=== PATIENT | female | born 1975 | race Hispanic/Latino ===

== ENCOUNTER 2018-12-30 09:14 | Inpatient (IN) | payer OTHER ==
[2018-12-29 09:18] VITALS: BMI 48.6
--- NOTE | 2018-12-30 06:46 | HP ---
REASON FOR ADMISSION: Menorrhagia, 8 cm submucosal fibroid, anemia, and low-grade dysplasia of the cervix. SCHEDULED PROCEDURE: Total laparoscopic hysterectomy and bilateral salpingectomy with GelPOINT bag retrieval. HISTORY OF PRESENT ILLNESS: Ms. Cody is a 43-year-old prisoner at the [facility] [place]. She presents with a history of menorrhagia, dysmenorrhea, and low-grade dysplasia with a negative cervical biopsy and a benign EMB. She has had five previous spontaneous vaginal deliveries. She has an 8 cm submucosal fibroid with menorrhagia and desires definitive surgical management. 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 The patient has heavy menses with microcytic anemia, changing pads every 30 minutes with severe dysmenorrhea. PAST MEDICAL HISTORY: None. SURGICAL HISTORY: Denies. ALLERGIES: DENIES. MEDICATIONS: Iron. SOCIAL HISTORY: Former tobacco user. Denies IV drug or alcohol abuse. FAMILY HISTORY: Noncontributory. REVIEW OF SYSTEMS: Noncontributory. PHYSICAL EXAMINATION: GENERAL: female, 5 feet 6 inches, 310, BMI 48. VITAL SIGNS: Blood pressure 122/74, pulse 68, and respirations 18. HEENT: Within normal limits. LUNGS: Clear to auscultation bilaterally. HEART: Regular rate and rhythm. BREASTS: No masses bilaterally. ABDOMEN: Soft, nontender without rebound or guarding. : Vulva without lesions. Vagina without discharge. Cervix, parous. Uterus anteverted for 12 to 14-week size. Adnexa, no masses bilaterally. EXTREMITIES: Without clubbing, cyanosis, or edema. LABORATORY DATA: Endometrial biopsy was benign. Pap smear was negative with a history of low-grade KAYLA in the past. Ultrasound reveals uterus measuring 13 x 10 x 10 cm with 715 mL volume and a large fibroid filling the entire uterus measuring 9 cm in greatest diameter. No adnexal masses or free fluid could be noted. IMPRESSION: Large intracavitary fibroid, symptomatic with menorrhagia and anemia. PLAN: Total laparoscopic hysterectomy with bilateral salpingectomy and GelPOINT bag retrieval. The patient understands risks and benefits of procedure. We will administer appropriate antibiotic and DVT prophylaxis. Job ID: [id number]
[2018-12-30] MEDS ORDERED: Gabapentin 300 MG CAP ONE (10:31)
[2018-12-30] MEDS ORDERED: CeleCOXIB 100 MG CAP ONE (10:32)
[2018-12-30] MEDS ORDERED: Famotidine/PF 20 mg/2ml Vial ONE (10:33)
[2018-12-30 10:54] LABS: BHCG - Serum Negative (NEGATIVE); Pregs Control Background? CLEAR/WHITE (CLR/WHITE); Pregs Control Bar Appear? YES (CONTROL BAR)
[2018-12-30] MEDS ORDERED: Bupivacaine/Epinephrine 0.25% 30 ML VIAL ONE (11:55)
[2018-12-30] MEDS ORDERED: Midazolam HCl 2 mg/2 ml Vial ONE (11:59)
[2018-12-30] MEDS ORDERED: Fentanyl 100 MCG/2 ML VIAL ONE ×3 (11:59→15:50)
[2018-12-30] MEDS ORDERED: Zolpidem Tartrate 5 MG TAB PO PRN (14:55)
[2018-12-30] MEDS ORDERED: Promethazine HCl 25 MG/ML VIAL IM PRN ×2 (14:55→15:03)
[2018-12-30] MEDS ORDERED: Simethicone Chewable 80 MG TAB PO PRN (14:55)
[2018-12-30] MEDS ORDERED: Morphine 2 MG/ML SYRINGE SLOW IVP PRN (14:55)
[2018-12-30] MEDS ORDERED: diphenhydrAMINE 25 MG CAP PO PRN (14:55)
[2018-12-30] MEDS ORDERED: Bisacodyl 10 MG SUPP PR PRN (14:55)
[2018-12-30] MEDS ORDERED: Ondansetron PF 4 MG/2 ML Vial IVP PRN (14:55)
[2018-12-30] MEDS ORDERED: traMADol HCl 50 MG TAB PO PRN (14:55)
[2018-12-30] MEDS ORDERED: Ketorolac Tromethamine 30 MG/ML VIAL IVP PRN (15:03)
[2018-12-30] MEDS ORDERED: HYDROmorphone 2 MG/ML VIAL SLOW IVP PRN (15:03)
[2018-12-30] MEDS ORDERED: Meperidine HCl/PF 25 MG/ML VIAL SLOW IVP PRN (15:03)
[2018-12-30] MEDS ORDERED: Promethazine HCl 25 MG/ML VIAL SLOW IVP PRN (15:03)
[2018-12-30] MEDS ORDERED: Ondansetron HCl/PF 4 MG/2 ML Vial IVP PRN (15:03)
--- NOTE | 2018-12-30 16:33 | OP ---
DATE OF PROCEDURE: 12/30/2018 PREOPERATIVE DIAGNOSIS: Large solitary leiomyomatous uterus with menorrhagia and dysmenorrhea. POSTOPERATIVE DIAGNOSIS: Large solitary leiomyomatous uterus with menorrhagia and dysmenorrhea. PROCEDURES PERFORMED: Total laparoscopic hysterectomy with extracorporeal morcellation, retrieval bag of approximately 750 g uterus with bilateral salpingectomy. SURGICAL RN: Hazel Nj PA-C ANESTHESIA: General endotracheal. ESTIMATED BLOOD LOSS: 200 mL. DRAINS: Rueda to gravity. MEDICATIONS: 2 g Ancef preincision. DVT PROPHYLAXIS: SCDs. OPERATIVE FINDINGS: 1. Approximately 14-week size uterus with solitary fundal leiomyoma extending into the right broad ligament. 2. Normal-appearing tubes and ovaries bilaterally. 3. Hemostasis, clear urine at the end of the procedure. 4. Bilateral ureters identified, noted to be well lateral to the surgical field. DISPOSITION: Recovery. DESCRIPTION OF PROCEDURE: After obtaining appropriate informed consent, the patient was taken to the operating room, where general endotracheal anesthesia was achieved without difficulty. The patient was prepped and draped in dorsal lithotomy in Juan stirrups. Weighted speculum was placed in the vagina. Cervix was identified, grasped with a single-tooth tenaculum. Uterus sounded to 14 cm. PHUC manipulator with 4 cm vaginal delineation device and a 10 cm obturator was placed without difficulty. Rueda catheter was placed, 100 mL of clear urine obtained. Hood Fitter removed the tenaculum and speculum out, changed his gloves, turned attention to the abdominal portion of the procedure. 10 mL of Marcaine was injected superior to the umbilicus. A 12 mm skin incision was made and Veress needle was placed inside the abdominal cavity, insufflation was carried out with carbon dioxide for a maximum pressure 15. 12 mm Rimma trocar was placed without difficulty. Confirmation of the entry into the peritoneal cavity without trauma to the underlying viscera was achieved. Findings as noted in the operative findings were noted. Right and left lateral da Inez ports were placed under direct visualization and an 11 mm curatorial assistant port in the right upper quadrant. Skin incision was extended to approximately 3 cm in length and cut down to the fascia was carried out for fascial incision of approximately 2.5 to 3 cm. A small Michael O was placed and the GelPort placed on it after placing a 14 cm specimen retrieval bag in the abdominal cavity in the usual manner. Da Inez robot was docked with monopolar scissors in the right hand and bipolar fenestrated forceps in the left. The fallopian tube was removed on the patient's left and then the utero-ovarian coagulated and transected through the broad and around. The uterus was manipulated over with a very large fibroid at the fundus. The cardinal ligament was identified and anterior and posterior peritoneum over it was incised, dissected off down the level of the uterosacral ligaments of the cervix and upper vagina. Skeletonization of the uterine vessels was carried out posteriorly. Ureter was identified, noted to be at least 2 cm lateral on that side. Anteriorly, the vesicouterine peritoneum was taken down sharply and dissected off the vagina and upper cervix. Skeletonization of the vessels on the left was carried out and these were coagulated and transected. There were noted to be quite large caliber secondary to the patient's fibroid. Attention was turned to the patient's right. Again, the fallopian tube was coagulated across the mesosalpinx and removed. On this side, the fibroid was much more prominent and really involved the entire broad ligament from the level of the pelvic brim down to the level of the internal cervical os. Fortunately, ureter was easily identified in the retroperitoneum. Anteriorly, the round ligament was coagulated and transected. The vesicouterine peritoneum incised from the level of the round down meeting the incision that were made from the left side. This was dissected off the lower uterine segment, cervix, and upper vagina. Uterine vessels were copious on the patient's right and caliber up to nearly 1 cm in diameter with many tortuousities and varicosities. The utero-ovarian ligament was identified, coagulated and transected and the broad incised anteriorly from that level to the level of the previous coagulation and transection of the round. Posteriorly, the uterus was pushed over to the patient's left, pushing the fibroid over as much as possible. The peritoneum was entered in a meticulous manner posteriorly and carried from the level of the broad ligament and the utero-ovarian down to the level of the cervix and upper vagina at the level of the uterosacral. Again, the ureter was identified and traced throughout its course. As the adventitial tissue and the broad ligament was taken down, the ureter maintained a more lateral course while the tortuous uterine vessels came over the top of it and entered into the uterus at the level of the internal cervical os. Uterine vessels were identified as individually as possible, coagulated and transected next to the cervix as closely as possible on the patient's right, getting down to the level of the uterosacral ligaments with the ureter again identified and noted to be well lateral on the right. Anteriorly, the vagina was entered. Difficulty with maintaining pneumoperitoneum was experienced at this time. It was found that the vaginal occlusion balloon on the PHUC had a leak. The PHUC was then therefore removed from the uterus and cervix and the rest of the specimen amputated occluding the vagina with a glove with a tight moist towel inside. Care was taken to not remove any more vagina than necessary and ensure complete removal of the cervix. The specimen was completely amputated and placed in the upper quadrant for retrieval. The bladder was backfilled and noted to be well away from the vaginal cuff. Good hemostasis was noted on the cuff and the cuff was closed using a running continuous 2-0 PDS, Stratafix from right to left and then back to right. The ureters were again identified bilaterally, noted to well lateral to the operative field. Suction irrigation was carried out. Good hemostasis was noted throughout. Tisseel was applied across all surgical pedicles. Good hemostasis was noted. The uterine specimen along with the 14 cm retrieval bag were pulled into the pelvis, stay sutures cut and the specimen placed inside the bag. The retrieval string on the bag then was pulled through the GelPOINT. The da Inez instruments were removed and the da Inez undocked, the patient flattened and the GelPOINT removed. The retrieval bag was pulled through the GelPOINT and rolled down. The specimen was morcellated in a serial manner extracorporeally using an 11 blade. The specimen was removed completely and great care was taken to avoid trauma to the underlying viscera. The small Michael O was removed. The fascia at the umbilicus was identified and closed using a running continuous 0 Vicryl suture. All trocars had been removed and the skin reapproximated x4 using 4-0 Monocryl and Dermabond. The glove was removed from the vagina. The vagina was noted to be dry without bleeding and intact cuff. The patient was taken to recovery room in good condition. Job ID: [id number]
[2018-12-30] MEDS: Sodium Chloride 0.9% 1,000 ML IV SCH (19:51)
[2018-12-30] MEDS: Ketorolac Tromethamine 30 MG/ML VIAL IVP SCH (19:51)
[2018-12-30] MEDS: Acetaminophen 1,000 MG in Premix Bag 1 BAG IVPB SCH (19:51)
[2018-12-30] MEDS: Ferrous Gluconate 324 MG TAB PO SCH (21:18)
[2018-12-31] MEDS: Acetaminophen 1,000 MG in Premix Bag 1 BAG IVPB SCH ×3 (02:07→11:28)
[2018-12-31] MEDS: Ketorolac Tromethamine 30 MG/ML VIAL IVP SCH (02:07)
[2018-12-31] MEDS: Sodium Chloride 0.9% 1,000 ML IV SCH ×2 (02:07→07:43)
[2018-12-31] MEDS ORDERED: Ibuprofen 800 MG TAB PO SCH (06:00)
[2018-12-31 07:03] LABS: Hemoglobin 10.9 g/dL (12.0-16.0); Mean Corpuscular HGB CONC 30.9 g/dL (32.0-36.0); Mean Corpuscular Hemoglobin 23.2 pg (27.0-31.0); Mean Platelet Volume 10.5 fL (7.4-10.4); Platelet Count 205 thou/uL (130-400); RBC Distribution Width 21.4 % (11.5-14.5); Red Blood Cell (RBC) Count 4.68 mill/uL (4.20-5.40); White Blood Cell (WBC) Count 10.9 thou/uL (4.8-10.8)
[2018-12-31] MEDS ORDERED: Cyanocobalamin 1000 MCG/ML VIAL IM SCH (09:00)
[2018-12-31] MEDS: Ferrous Gluconate 324 MG TAB PO SCH (09:17)
--- NOTE | 2018-12-31 10:36 | DIS ---
DATE OF ADMISSION: 12/30/2018 DATE OF DISCHARGE: 12/31/2018 PRIMARY HOSPITAL PROCEDURE: Total laparoscopic hysterectomy with bilateral salpingectomy; extracorporeal morcellation greater than 250 g. SUMMARY OF HOSPITAL COURSE: Ms. Cody is a 43-year-old female with large fibroid with approximately 700 g uterus. She underwent TLH, bilateral salpingectomy on the afternoon of 12/30/2018. She had extracorporeal morcellation carried out with an EBL of approximately 200 mL. Postoperative day #1, Rueda catheter was discontinued in the morning awaiting patient voiding at the time of this dictation. PHYSICAL EXAMINATION: VITAL SIGNS: Temperature is 98.6, pulse 62, respirations are 20, and blood pressure 117/56. Urine output was 700 mL overnight. Hematocrit was 35% on postoperative day #1 with normal platelet count. LUNGS: Clear to auscultation bilaterally. HEART: Regular rate and rhythm. ABDOMEN: Soft and nontender. Incisions are dry x4. Perineum is dry. EXTREMITIES: No clubbing, cyanosis, or edema. PLAN: The patient will be discharged home after 1200 hours on 12/31/2018 with discharge medications; tramadol 50 to 100 mg p.o. q.4 to 6 hours p.r.n. and Motrin 800 mg p.o. q.8 hours p.r.n. She is scheduled to follow up at [facility] and will be discharged to the [facility]. Job ID: [id number]
[2018-12-31 12:25] VITALS: BP 137/62; TEMP 97.6
[2018-12-31] MEDS ORDERED: FLU VACC QS2019-20(6MOS UP)/PF 60 MCG/0.5 ML SYRINGE IM ONE (21:00)
== END 2018-12-31 13:45 | DRG 742 ==
LOC: SURG A 10:04 → 3SE 17:24
PROVIDERS: ADMIT Obstetrics & Gynecology; ATTEND Obstetrics & Gynecology
PROC: 0UT94ZZ Resection of Uterus, Percutaneous Endoscopic Approach (ICD-10-PCS; principal; 2018-12-30)
PROC: 0UT74ZZ Resection of Bilateral Fallopian Tubes, Percutaneous Endoscopic Approach (ICD-10-PCS; 2018-12-30)
PROC: 8E0W4CZ Robotic Assisted Procedure of Trunk Region, Percutaneous Endoscopic Approach (ICD-10-PCS; 2018-12-30)
DX: D25.0 Submucous leiomyoma of uterus (principal); Z68.42 Body mass index [BMI] 45.0-49.9, adult; N92.0 Excessive and frequent menstruation with regular cycle; D64.9 Anemia, unspecified; N94.6 Dysmenorrhea, unspecified; E66.9 Obesity, unspecified; F41.9 Anxiety disorder, unspecified; Z87.891 Personal history of nicotine dependence
CPT/HCPCS: 36415; 84703; 85027; 86850; 86900; 86901; 88307; J0131; J0690; J1885; J2250; J2270; J3010; J3420; S0028

== ENCOUNTER 2020-03-23 02:07 | Emergency (ER) | payer OTHER ==
[2020-03-23 03:03] LABS: #Basophils 0.1 thou/uL (0.0-0.2); #Eosinphils 0.2 thou/uL (0.0-0.7); #Lymphocytes 1.3 thou/uL (1.20-3.40); #Monocytes 0.4 thou/uL (0.11-0.59); #Neutrophils 5.2 thou/uL (1.40-6.50); %Basophils 0.8 % (0.0-1.0); %Eosinophils 2.4 % (0.0-10.0); %Lymphocytes 18.2 % (21.0-51.0); %Neutrophils 73.6 % (42.0-75.0); Hemoglobin 13.5 g/dL (12.0-16.0); Mean Corpuscular HGB CONC 32.7 g/dL (32.0-36.0); Mean Corpuscular Hemoglobin 26.7 pg (27.0-31.0); Mean Corpuscular Volume 81.7 fL (78.0-98.0); Mean Platelet Volume 7.9 fL (7.4-10.4); Platelet Count 218 thou/uL (130-400); RBC Distribution Width 13.5 % (11.5-14.5); Red Blood Cell (RBC) Count 5.06 mill/uL (4.20-5.40)
[2020-03-23 03:24] LABS: ALT (SGPT) 20 U/L (8-55); AST (SGOT) 25 U/L (5-34); Albumin 4.2 g/dL (3.5-5.0); Alkaline Phosphatase 52 U/L (40-110); Anion Gap 14 mmol/L (10-20); BUN (Urea Nitrogen) 11 mg/dL (7.0-18.7); Bilirubin, Total 0.7 mg/dL (0.2-1.2); Calc. Creatinine Clearance 0 mL/min (70-130); Calcium 8.9 mg/dL (7.8-10.44); Carbon Dioxide 22 mmol/L (22-29); Chloride 104 mmol/L (98-107); Globulin 3.6 g/dL (2.4-3.5); Glucose 98 mg/dL (70-105); Potassium 4.1 mmol/L (3.5-5.1); Protein, Total 7.8 g/dL (6.0-8.3); Sodium 136 mmol/L (136-145)
[2020-03-23] MEDS ORDERED: Ondansetron ODT 8 MG TAB ONE (03:34)
[2020-03-23] MEDS ORDERED: Ketorolac Tromethamine 30 MG/ML VIAL ONE (03:34)
[2020-03-23 05:52] LABS: Bilirubin Negative (Negative); Blood, Urine 1+ (Negative); Clarity Clear (Clear); Glucose, Urine (Dipstick) Normal (Negative); Ketone, Urine Negative (Negative); Leukocyte Negative Leu/uL (Negative); Nitrite Negative (Negative); Protein, Urine (Dipstick) Negative (Neg-Trace); Specific Gravity, Urine 1.015 (1.002-1.036); Squamous Epithelial 0-3 HPF (0-3); Urobilinogen Normal mg/dL (Less than 2); WBC/HPF 0-3 HPF (0-3)
[2020-03-23 05:53] LABS: Bacteria/HPF 1+ HPF (None Seen)
--- NOTE | 2020-03-23 07:48 | CT ---
PRELIMINARY REPORT/[facility]/EMERGENCY AFTER HOURS PROCEDURE EXAM: CT Abdomen and Pelvis Without Intravenous Contrast CLINICAL HISTORY: ABDOMINAL PAIN THAT STARTED YESTERDAY, PATIENT WAS GIVEN ABX FOR DIARRHEA. HAD SYNCOPAL EPISODE WHILE HAVING BOWEL MOVEMENT TODAY, STATES SHE IS NOT ABLE TO KEEP ANYTHING DOWN. SURGICAL HISTORY HYSTERECTOMY TECHNIQUE: Axial computed tomography images of the abdomen and pelvis without intravenous contrast. CONTRAST: None. COMPARISON: None provided. FINDINGS: LUNG BASES: No basilar airspace consolidation or pleural effusion. LIVER: Unremarkable. GALLBLADDER AND BILE DUCTS: Gallstones visualized. No CT evidence for acute cholecystitis. PANCREAS: Unremarkable. SPLEEN: Unremarkable. ADRENAL GLANDS: Unremarkable. KIDNEYS, URETERS, AND BLADDER: Unremarkable. No hydronephrosis or nephrolithiasis. No ureteral or bladder calculi. STOMACH AND BOWEL: No obstruction. No wall thickening. No CT evidence of colitis or acute diverticulitis. APPENDIX: No CT evidence for appendicitis. PERITONEUM: No free fluid. No free air. LYMPH NODES: No lymphadenopathy. REPRODUCTIVE: Unremarkable as visualized. VASCULATURE: No aortic aneurysm. ABDOMINAL WALL AND SOFT TISSUES: Unremarkable. BONES: No fracture or suspicious osseous abnormality. IMPRESSION: No acute intra-abdominal or pelvic abnormality. Gallstones. ELECTRONICALLY SIGNED BY: Aldo Mason MD Mar 23, 2020 3:57:10 AM EMPLOYEE SERVICES MANAGER This report is intended for review by the ordering physician only, in accordance of law. If you recei ve this report in error, please call [facility] at [phone]. FINAL REPORT Exam: Abdomen CT without contrast Pelvic CT without contrast HISTORY: Abdominal pain. COMPARISON: None FINDINGS: Abdomen CT: Lung bases:Clear Heart size: Normal heart size Aorta: Normal caliber. No periaortic fat stranding Solid organs: Limited evaluation by the absence of IV contrast. Grossly no solid organ abnormality Lymph nodes: No gastrohepatic, retrocrural or periportal lymphadenopathy Gallbladder: CT evidence of cholelithiasis without evidence of cholecystitis Mesentery: No mass, lymphadenopathy, free air or free fluid Kidneys: Bilaterally, no hydronephrosis, nephrolithiasis or perinephric fat stranding. Bilateral uret ers have a normal caliber. No hydroureter, periureteral fat stranding or ureterolithiasis. Alimentary canal: Limited evaluation by the lack of oral contrast. No bowel obstruction. Normal ileoc ecal junction. Normal caliber appendix. Scattered fecal material in a nondistended, nondilated colon. CT PELVIS: No mass, lymphadenopathy or free air. Trace free fluid. Uterus is surgically absent. Urinary bladder: Unremarkable. Osseous structures: No lytic or blastic lesions Additional findings: Umbilical hernia containing mesenteric fat IMPRESSION: 1. This report is in agreement with initial report by [facility]. 2. No evidence of obstructive uropathy Transcribed Date/Time: 03/23/2020 8:34 AM
--- NOTE | 2020-03-23 08:00 | RAD ---
Portable frontal chest radiograph: 03/23/2020 COMPARISON: None available HISTORY: Syncope, abdominal pain FINDINGS: Lungs are clear. Heart and mediastinal contours appear within normal limits. IMPRESSION: No acute findings.
== END 2020-03-23 06:35 | disposition home or self-care (01) ==
LOC: ERS 02:07
DX: K80.20 Calculus of gallbladder without cholecystitis without obstruction (principal); R55 Syncope and collapse; M54.9 Dorsalgia, unspecified; I10 Essential (primary) hypertension
CPT/HCPCS: 36415; 71045; 74176; 80053; 81003; 81015; 85025; 93005; 96372; J1885; Q0162